=== PATIENT | male | born 1955 | race Caucasian/White ===

== ENCOUNTER → 2017-09-03 13:25 | Outpatient (CLI) | payer BC, SELFPAY ==
--- NOTE | 2017-09-03 13:31 | STE_ITS ---
Reason For Study: PRE-OP, RBBB, HTN, ABN EKG Stress Results Protocol: Dobutamine Stress Protocol Maximum Predicted HR: 161 bpm Target HR: 137 bpm% Maximum Predict ed HR: 84 % DurationHeart Rate Stage (mm:ss) (bpm) BPDose Comment BASELINE 88 137/98 DSE- 10 MCG 3:15 91 142/91 10.00 DSE- 20 MCG 3:05 12 0 175/96 20.00 DSE- 30 MCG 2:32 13 6 159/27751.00RARE TO OCCAS PVCS, RARE COUPLET. RECOVERY 98 142/82 RARE RUNS OF WIDE COMPLEX TACHYCARDIA Stress Duration: 8:52 mm:ss Maximum Stress HR: 136 bpm Baseline Echocardiogram Findings The estimated ejection fraction is 65 %. Stress Echo Wall motion Data Resting WMIntermediate WMStress WM Resting Wall Motion Wall Motion Stress No regional wall motion No regional wall motion abnormalities noted. abnormalities noted. EKG Data NSR with RBBB. The patient was titrated from 10 mcg to a maximun of 30 mcg of dobutamine during the stress. The maximum heart rate attained was 136 beats per minute. This was 84% of maximum predicted heart rate. During dobutamine infusion, there were no ST or T wave changes noted to suggest ischemia. No clinical angina was noted. Interpretation Summary The estimated ejection fraction is 65 %. The patient was titrated from 10 mcg to a maximun of 30 mcg of dobutamine during the stress. Normal, adequate, dobutamine echocardiogram. Negative for ischemia by EKG and echocardiographic criteria. No anginal symptoms noted. Rare PVC noted. Appropriate blood pressure response to dobutamine. Final LVEF is 75%. Test terminated due to the attainment of target heart rate. Patient tolerated procedure well. He is at low risk for noncardiac surgery. Ordering Physician: Francisco Wagner Referring Physician: Francisco Wagner Performed By: Lakeshia Bedolla, AMYCS, RVT
== END ==
PROVIDERS: Family Provider Nurse Practitioner; PCP Nurse Practitioner; Visit Provider Internal Medicine Cardiovascular Disease
DX: Z01.810 Encounter for preprocedural cardiovascular examination (principal); I45.10 Unspecified right bundle-branch block; R94.31 Abnormal electrocardiogram [ECG] [EKG]; I10 Essential (primary) hypertension; E66.9 Obesity, unspecified; E11.9 Type 2 diabetes mellitus without complications
CPT/HCPCS: 93017; 93350; J7030; A4216

== ENCOUNTER → 2019-05-29 22:36 | Outpatient (CLI) | payer BC, SELFPAY ==
[2019-05-29 22:44] LABS: Absolute Neutrophil Count 6.3 X10^3/uL (2.0-7.7); Basophil# 0.06 X10^3/uL; Basophil% 0.6 % (0-1); Eosinophil# 0.11 X10^3/uL; Eosinophils% 1.2 % (0-5); Hematocrit 45.9 % (40-54); Hemoglobin 15.7 g/dL (13.0-16.5); Lymphocyte % 22.6 % (19-41); Mean Corp Hgb Conc 34.2 g/dL (32-36); Mean Corpuscular Hgb 31.3 pg (27.0-32.0); Mean Corpuscular Volume 91.6 fL (80-94); Mean Platelet Vol. 10.6 fl (6.2-12.0); Monocyte# 0.64 X10^3/uL; Monocyte% 6.9 % (0-10); NRBC Flagged by Analyzer 0 % (0-5); Neutrophil # 6.33 X10^3/uL (2.7-7.7); Neutrophil % 68.3 % (47-70); Platelet Count 272 K/mm3 (150-450); RBC Distribution Width SD 40.2 fl (35.1-43.9); Red Blood Count 5.01 M/mm3 (4.6-6.2); White Blood Count 9.3 K/mm3 (4.4-11.0)
[2019-05-29 23:00] LABS: ALB/GLOB Ratio 1.2 RATIO (0.9-2.4); AST(SGOT) 20 U/L (15-37); Alanine Aminotransfer ALT/SGPT 45 U/L (16-61); Alkaline Phosphatase 60 U/L (45-117); Anion Gap 6 (5-15); BUN 24 mg/dL (7-18); BUN/Creat Ratio 24.5 RATIO (10-20); Calcium,Total 9.1 mg/dL (8.5-10.1); Chloride 102 mmol/L (98-107); Cholesterol 206 mg/dL (200); Creatinine, Serum 0.98 mg/dL (0.70-1.30); EST Glomerular Filtration Rate 82 mL/min (>60); Est Glom Filt Rate - Afr Amer 100 mL/min (>60); Globulin 3.4 g/dL (2.2-4.2); Glucose 166 mg/dL (74-106); High Density Lipoprotein 46 mg/dL; PSA,Total - Annual Screen 0.22 ng/mL (0.00-4.00); Potassium 4.3 mmol/L (3.5-5.1); Protein, Total 7.4 g/dL (6.4-8.2); Sodium Level 135 mmol/L (136-145); Triglycerides 242 mg/dL; Very Low Density Lipoprotein 48 mg/dL (5-40)
== END ==
PROVIDERS: Family Provider Nurse Practitioner; PCP Nurse Practitioner; Referring Provider Nurse Practitioner; Visit Provider Nurse Practitioner
DX: I73.9 Peripheral vascular disease, unspecified (principal); R39.15 Urgency of urination; E11.9 Type 2 diabetes mellitus without complications
CPT/HCPCS: 80053; 80061; 84153; 85025; G0103

== ENCOUNTER → 2020-06-11 | Outpatient (CLI) | payer BC, SELFPAY ==
[2020-06-11 18:54] VITALS: BMI 37.5
[2020-06-11 22:57] LABS: Absolute Lymphocyte Count 2.28 X10^3/uL (0.83-4.51); Absolute Neutrophil Count 5.6 X10^3/uL (2.0-7.7); Basophil# 0.07 X10^3/uL; Basophil% 0.8 % (0-1); Eosinophil# 0.16 X10^3/uL; Eosinophils% 1.8 % (0-5); Hematocrit 46.8 % (40-54); Hemoglobin 15.6 g/dL (13.0-16.5); Lymphocyte # 2.28 X10^3/ul (4.0); Lymphocyte % 25.7 % (19-41); Mean Corp Hgb Conc 33.3 g/dL (32-36); Mean Corpuscular Hgb 31.4 pg (27.0-32.0); Mean Corpuscular Volume 94.2 fL (80-94); Mean Platelet Vol. 11.2 fl (6.2-12.0); Monocyte# 0.72 X10^3/uL; Monocyte% 8.1 % (0-10); NRBC Flagged by Analyzer 0 % (0-5); Neutrophil # 5.62 X10^3/uL (2.7-7.7); Neutrophil % 63.4 % (47-70); Platelet Count 258 K/mm3 (150-450); RBC Distribution Width CV 12.1 % (11.6-14.6); RBC Distribution Width SD 42.2 fl (35.1-43.9); Red Blood Count 4.97 M/mm3 (4.6-6.2); White Blood Count 8.9 K/mm3 (4.4-11.0)
[2020-06-11 23:14] LABS: ALB/GLOB Ratio 1.1 RATIO (0.9-2.4); AST(SGOT) 20 U/L (15-37); Alanine Aminotransfer ALT/SGPT 54 U/L (16-61); Albumin, Serum 3.9 g/dL (3.2-5.0); Alkaline Phosphatase 66 U/L (45-117); Anion Gap 5 (5-15); BUN 22 mg/dL (7-18); BUN/Creat Ratio 25.6 RATIO (10-20); Calcium,Total 9.3 mg/dL (8.5-10.1); Chloride 100 mmol/L (98-107); Cholesterol 202 mg/dL (200); Creatinine, Serum 0.86 mg/dL (0.70-1.30); EST Glomerular Filtration Rate 96 mL/min (>60); Est Glom Filt Rate - Afr Amer 116 mL/min (>60); Globulin 3.4 g/dL (2.2-4.2); Glucose 216 mg/dL (74-106); High Density Lipoprotein 43 mg/dL; Potassium 4.8 mmol/L (3.5-5.1); Protein, Total 7.3 g/dL (6.4-8.2); Sodium Level 135 mmol/L (136-145); Triglycerides 275 mg/dL; Very Low Density Lipoprotein 55 mg/dL (5-40)
== END | disposition home or self-care (01) ==
PROVIDERS: PCP Nurse Practitioner; Referring Provider Nurse Practitioner; Visit Provider Nurse Practitioner
DX: E11.9 Type 2 diabetes mellitus without complications (principal); I10 Essential (primary) hypertension; R35.0 Frequency of micturition
CPT/HCPCS: 80053; 80061; 84153; 85025; G0103

== ENCOUNTER 2021-07-17 22:05 | Outpatient (CLI) | payer OTHER, SELFPAY ==
[2021-07-17 22:17] LABS: Absolute Lymphocyte Count 2.26 X10^3/uL (0.83-4.51); Absolute Neutrophil Count 5.7 X10^3/uL (2.0-7.7); Basophil# 0.05 X10^3/uL; Basophil% 0.6 % (0-1); Eosinophil# 0.12 X10^3/uL; Eosinophils% 1.4 % (0-5); Hematocrit 44.9 % (40-54); Hemoglobin 15.5 g/dL (13.0-16.5); Lymphocyte # 2.26 X10^3/ul (0.83-4.51); Lymphocyte % 25.7 % (19-41); Mean Corp Hgb Conc 34.5 g/dL (32-36); Mean Corpuscular Hgb 30.9 pg (27.0-32.0); Mean Corpuscular Volume 89.6 fL (80-94); Mean Platelet Vol. 10.7 fl (6.2-12.0); Monocyte# 0.58 X10^3/uL; Monocyte% 6.6 % (0-10); NRBC Flagged by Analyzer 0 % (0-5); Neutrophil # 5.74 X10^3/uL (2.7-7.7); Neutrophil % 65.4 % (47-70); Platelet Count 282 K/mm3 (150-450); RBC Distribution Width CV 12.1 % (11.6-14.6); RBC Distribution Width SD 39.2 fl (35.1-43.9); Red Blood Count 5.01 M/mm3 (4.6-6.2); White Blood Count 8.8 K/mm3 (4.4-11.0)
[2021-07-17 22:38] LABS: ALB/GLOB Ratio 1.1 RATIO (0.9-2.4); AST(SGOT) 20 U/L (15-37); Alanine Aminotransfer ALT/SGPT 51 U/L (16-61); Albumin, Serum 3.8 g/dL (3.2-5.0); Alkaline Phosphatase 63 U/L (45-117); Anion Gap 5 (5-15); BUN 20 mg/dL (7-18); BUN/Creat Ratio 24.8 RATIO (10-20); Calcium,Total 9.2 mg/dL (8.5-10.1); Chloride 100 mmol/L (98-107); Cholesterol 195 mg/dL (200); Creatinine, Serum 0.81 mg/dL (0.70-1.30); EST Glomerular Filtration Rate 103 mL/min (>60); Est Glom Filt Rate - Afr Amer 124 mL/min (>60); Globulin 3.6 g/dL (2.2-4.2); Glucose 284 mg/dL (74-106); High Density Lipoprotein 38 mg/dL; PSA,Total - Annual Screen 0.21 ng/mL (0.00-4.00); Potassium 5.1 mmol/L (3.5-5.1); Protein, Total 7.4 g/dL (6.4-8.2); Sodium Level 135 mmol/L (136-145); Triglycerides 329 mg/dL; Very Low Density Lipoprotein 66 mg/dL (5-40)
[2021-07-17 22:44] LABS: Hemoglobin A1c 10.1 % (3.8-5.6)
== END 2021-07-17 23:59 | disposition short-term general hospital (02) ==
PROVIDERS: PCP Nurse Practitioner; Visit Provider Nurse Practitioner
DX: E11.65 Type 2 diabetes mellitus with hyperglycemia (principal); I10 Essential (primary) hypertension; R35.0 Frequency of micturition
CPT/HCPCS: 80053; 80061; 83036; 84153; 85025; G0103

== ENCOUNTER 2021-07-31 07:19 | Day surgery (SDC) | payer OTHER, SELFPAY ==
[2021-07-31] VITALS (7 sets, daily range): BP systolic 120–157; BP diastolic 75–101; PULSE 64–73; RESP 3–18; TEMP 36.3–37.1; O2SAT 95–98; BMI 36.3
[2021-07-31] MEDS: Lactated Ringers 1,000 ML 15 ML IV (07:30)
[2021-07-31 08:01] LABS: Bedside Glucose 246 mg/dL (70-110)
--- NOTE | 2021-07-31 08:22 | HP.PCM_ITS ---
HPI - General HPI Narrative MICHELLE BAIN, is a 65 M who presents for screening colonoscopy secondary to duration since last screening colonoscopy being greater than 10 years. They are referred for surgical consultation from Lina Bruno NP. Patient has had prior colonoscopy. According the patient, the results of the scope were u nremarkable and the recommended follow-up was 10 years. Patient has no personal history of inflammatory bowel disease, diverticulitis, or colon cancer. They describe their bowel habits as normal, occurring approximately once daily. They deny any significant straining, bloody stools, or small caliber stools. Patient has a family history of colon cancer?in a half brother who was diagnosed with co batsheva cancer at the age of 65 and succumbed to this diagnosis at the age of 67. Patient confirms that he completed his prep successfully prior to today's procedure. [facility] Medical History (Updated 07/31/21 @ 08:[address] Aakash Sebastian MD) Abnormal electrocardiogram Arthritis Cardiology follow-up encounter Chronic hip pain Diabetes Dietary restriction Essential (primary) hypertension History of stress test Hypertension Non-smoker Obesity (BMI 30-39.9) Preop cardiovascular exam Right bundle branch block Type 2 diabetes mellitus without complications Home Medications aspirin 81 mg tablet,delayed release 81 mg PO QDAY tab 09/01/17 [History Last Taken 07/31/21] imiquimod 5 % topical cream packet 1 applic TOPICAL 5XW #24 ea 06/18/20 [Rx Last Taken Unknown] losartan 100 mg tablet 100 mg PO QDAY #30 tab 07/17/21 [Rx Last Taken 07/31/21] metformin 1,000 mg tablet 1,000 mg PO BID #60 tab 07/17/21 [Rx Last Taken Unknown] metoprolol succinate 100 mg tablet,extended release 24 hr 100 mg PO QDAY #30 tab 07/17/21 [Rx Last Taken 07/31/21] dapagliflozin 10 mg tablet 10 mg PO DAILY #30 tab 07/18/21 [Rx Last Taken Unknown] Allergy/AdvReac Type Severity Reaction Status Date / Time No Known Allergies Allergy Verified 07/31/21 07:42 Family History Mother Hypertension Diabetes Brother Heart disease Rheumatic Fever, valvular heart disease, MVR Rectal cancer 1/2 brother Surgical History (Updated 07/25/21 @ 09:18 by Dorys Davalos) bicep tendon repair H/O shoulder surgery History of herniorrhaphy History of surgery on arm History of total hip replacement Hx of colonoscopy Social History Smoking Status: Never smoker alcohol intake: never caffeine: No Past Medical/Surgical History Planned Operation Planned Operative Procedure/s: CSCOPE OA Previous Hospitalizations/Surgeries HX Hospitalizations: No Any Problems With Anesthesia: No You/Your Family Experience Fever (Hyperthermia) With Anes: No Cholinesterase deficiency: No Cardiovascular Hx Hypertension: Yes (CONTROLLED WITH MED) Respiratory Hx Sleep Apnea: No Hx Respiratory Tract Infection/Cold (presently): No Do You Snore Loudly (louder than talking or can be heard): No Do You Often Feel Tired/ Fatigued/ Sleepy Dring Daytime?: No Has Anyone Observed You Stop Breathing During Sleep?: No Result (for STOP score): Negative Smoking Status: Never smoker Neurological Does patient have nerve stimulator: No Reproduction : No Allergies No Known Allergies Allergy (Verified 07/31/21 07:42) Discharge Is Pt Admitted From a Halfway, or a Penitentiary: No After D/C, Where Do you Plan to Go: Return Home Vital Signs Vital Signs Vital Signs: 07/31/21 07:44 Temperature 97.3 F L Temperature Source Temporal Pulse Rate 70 Respiratory Rate 18 Respiratory Pattern Normal Blood Pressure 157/101 H Blood Pressure Mean 119 Blood Pressure Source Monitor Blood Pressure Position Semi-Fowlers Blood Pressure Location Left Arm Pulse Ox 98 Oxygen Delivery Method Room Air Weight Weight: 260 lb 2.327 oz Body Mass Index (BMI) 36.3 Physical Exam Const alert, oriented x3 and no apparent distress General Appearance: cooperative and comfortable GI soft to palpation, non-tender and non-distended Assessment & Plan Assessment/Plan (1) Screening for colon cancer: PLAN: This is a 65-year-old male who presents for update of screening colonoscopy. He states that his last screening colonoscopy was normal some 10+ years ago. He denies any personal change in bowel habits, but is eager to update his maintenance exam secondary to a diagnosis of colon cancer in a half brother. Patient confirms that his bowel prep proceeded without issue and that his output is now clear. I have described the details of the procedure and any post-? procedure expectations. Patient and his spouse expressed understanding. Therefore we will plan to proceed with screening colonoscopy under local MAC. Surgery Risks - Colonoscopy Risks Include but are not Limited To: Risks include but are not limited to: Bleeding, perforation requiring further surgery, inability to complete colonoscopy requiring barium enema.
--- NOTE | 2021-07-31 09:21 | OP.COLON_ITS ---
Patient Name: Anatoliy Earl Procedure Date: 07/31/2021 8:14 AM Date of : 1955 Age: 65 Procedure: Colonoscopy Indications: Screening for colorectal malignant neoplasm (last colonoscopy was more than 10 years ago) Providers: Aakash Sebastian MD Referring MD: Aakash Sebastian MD Medicines: See the Anesthesia note for documentation of the administered medications Patient Profile: Last Colonoscopy: more than 10 years ago. Complications: No immediate complications. Estimated blood loss: None. Procedure: Pre-Anesthesia Assessment: - The heart rate, respiratory rate, oxygen saturations, blood pressure, adequacy of pulmonary ventilation, and response to care were monitored throughout the procedure. After I obtained informed consent, the scope was passed under direct vision. Throughout the procedure, the patient's blood pressure, pulse, and oxygen saturations were monitored continuously. The adult colonoscope was introduced through the anus and advanced to the cecum, identified by appendiceal orifice and ileocecal valve. The colonoscopy was somewhat difficult due to poor endoscopic visualization. Successful completion of the procedure was aided by lavage. The patient tolerated the procedure well. The quality of the bowel preparation was adequate to identify polyps 6 mm and larger in size. Scope In: 8:39:30 AM Scope Withdrawal Time 0 hours 19 minutes 52 seconds Scope Out: 9:12:44 AM Total Procedure Duration Time 0 hours 33 minutes 14 seconds Findings: The exam was otherwise without abnormality on direct and retroflexion views. A few small-mouthed diverticula were found in the hepatic flexure. No biopsies or other specimens were collected for this exam. Impression: - The examination was otherwise normal on direct and retroflexion views. - Diverticulosis at the hepatic flexure. No specimens collected. Recommendation: - Discharge patient to home (via wheelchair). - Resume previous diet today. - Continue present medications. - Repeat colonoscopy in 10 years for screening purposes. Procedure Code(s): --- Professional --- 18850, Colonoscopy, flexible; diagnostic, including collection of specimen(s) by brushing or washing, when performed (separate procedure) Diagnosis Code(s): --- Professional --- Z12.11, Encounter for screening for malignant neoplasm of colon K57.30, Diverticulosis of large intestine without perforation or abscess without bleeding CPT copyright 2017 [employer]. All rights reserved. The codes documented in this report are preliminary and upon construction helper review may be revised to meet current compliance requirements. Aakash Sebastian MD 07/31/2021 9:21:39 AM This report has been signed electronically. Number of Addenda: 0 Note Initiated On: 07/31/2021 8:14 AM
--- NOTE | 2021-07-31 09:22 | OP.CCLET_ITS ---
07/31/2021 Lina Bruno NP [facility] [address] [place] [id number] Re : Colonoscopy procedure for Anatoliy Earl Dear Ms. Bruno This procedure was performed on July. My impressions and recommendations are as follows: Impressions : - The examination was otherwise normal on direct and retroflexion views. - Diverticulosis at the hepatic flexure. No specimens collected. Recommendations : - Discharge patient to home (via wheelchair). - Resume previous diet today. - Continue present medications. - Repeat colonoscopy in 10 years for screening purposes. My findings are described in the full procedure note, which is enclosed. If I can be of further assistance, please feel free to contact me at Doctor phone number(s): , Work: . Sincerely, Aakash Sebastian MD 07/31/2021 9:21:39 AM This report has been signed electronically.
== END 2021-07-31 23:59 | disposition home or self-care (01) ==
LOC: EN 07:20 → AC 07:20
PROVIDERS: PCP Nurse Practitioner; Referring Provider Surgery; Visit Provider Surgery
PROC: 0DJD8ZZ Inspection of Lower Intestinal Tract, Via Natural or Artificial Opening Endoscopic (ICD-10-PCS; CPT 45378; principal; 2021-07-31 08:25)
DX: Z12.11 Encounter for screening for malignant neoplasm of colon (principal); E11.51 Type 2 diabetes mellitus with diabetic peripheral angiopathy without gangrene; E11.65 Type 2 diabetes mellitus with hyperglycemia; K57.30 Diverticulosis of large intestine without perforation or abscess without bleeding; I45.10 Unspecified right bundle-branch block; I10 Essential (primary) hypertension; M19.90 Unspecified osteoarthritis, unspecified site; E66.9 Obesity, unspecified; Z68.36 Body mass index [BMI] 36.0-36.9, adult; Z79.82 Long term (current) use of aspirin; Z79.84 Long term (current) use of oral hypoglycemic drugs; Z79.899 Other long term (current) drug therapy; Z20.822 Contact with and (suspected) exposure to COVID-19; Z80.0 Family history of malignant neoplasm of digestive organs
CPT/HCPCS: 45378; 82962; 87426; C9803; J7120; J2405

== ENCOUNTER → 2022-04-06 | Outpatient (CLI) | payer OTHER, SELFPAY | END | disposition home or self-care (01) | LOC: PSN 06:57 | PROVIDERS: PCP Nurse Practitioner; Referring Provider Internal Medicine Cardiovascular Disease; Visit Provider Internal Medicine Cardiovascular Disease | DX: R94.31 Abnormal electrocardiogram [ECG] [EKG] (principal) | CPT/HCPCS: 93225; 93226 ==

== ENCOUNTER → 2022-04-09 | Outpatient (CLI) | payer OTHER, SELFPAY ==
--- NOTE | 2022-04-09 06:34 | ECHOD_ITS ---
Reason For Study: HTN Procedure This was a 2D Doppler, Color Flow transthoracic echocardiogram. Exam performed in department. Left Ventricle Mild concentric left ventricular hypertrophy. Normal LV size. The left ventricular ejection fraction is 50 %. Normal diastololic function. Right Ventricle Normal right ventricle. Atria The left atrium is moderately enlarged. Normal right atrium. Mitral Valve Mild mitral annular calcification. Trivial mitral valve insufficiency. Tricuspid Valve Trivial tricuspid valve insufficiency. Pulmonary artery systolic pressure is 28 mmHg. Aortic Valve Trisinus/trileaflet aortic valve. Mild diffuse aortic valve calcification. Mild aortic stenosis. Trivial aortic valve insufficiency. Pulmonic Valve The pulmonic valve is not well visualized. Mild (1+) eccentric pulmonic valve insufficiency. Great Vessels Calcified aortic root. Mild to moderately dilated aortic root. Pericardium/Pleural No pericardial effusion. MMode/2D Measurements & Calculations LVIDd: 4.9 cm IVSd: 1.2 cm Ao root diam: 4.3 cm LVIDs: 3.4 cm LVPWd: 1.2 cm RVDd: 3.5 cm FS: 29.3 % LAV(MOD-bp): 55.8 ml LVAd ap4: 44.3 cm2 SV(MOD-sp4): 92.8 ml LAV(MOD-bp) Indexed: 24.1 ml/m2 LVLd ap4: 9.1 cm LAV(MOD-sp2): 53.4 ml EDV(MOD-sp4): 173.2 ml LAV(MOD-sp4): 56.1 ml EDV(sp4-el): 183.7 ml LVAs ap4: 27.9 cm2 LVLs ap4: 8.3 cm ESV(MOD-sp4): 80.4 ml ESV(sp4-el): 79.9 ml EF(MOD-sp4): 53.6 % EF(sp4-el): 56.5 % SV(sp4-el): 103.8 ml LA A4 area: 20.6 cm2 LA dimension(2D): 3.7 cm RA A4 area: 21.1 cm2 Time Measurements MV dec time: 0.26 sec Doppler Measurements & Calculations MV E max franco: 56.1 cm/sec Lat Peak E' Franco: 4.2 cm/sec Med Peak E' Franco: 5.8 cm/sec MV A max franco: 109.4 cm/sec E/E' lat: 13.3 E/E' med: 9.7 MV E/A: 0.51 Ao V2 max: 149.1 cm/sec LV V1 max: 87.2 cm/sec PA V2 max: 91.5 cm/sec Ao max P.9 mmHg LV V1 max P.0 mmHg LV V1 mean P.9 mmHg LV V1 mean: 66.5 cm/sec LV V1 VTI: 18.9 cm TR max franco: 215.5 cm/sec TR max P.6 mmHg ECHO/Echo Complete Interpretation Summary Mild concentric left ventricular hypertrophy. The left ventricular ejection fraction is 50 %. The left atrium is moderately enlarged. Mild mitral annular calcification. Mild aortic stenosis. Mild (1+) eccentric pulmonic valve insufficiency. Mild to moderately dilated aortic root. Ordering Physician: Sukumar Ponce Referring Physician: SHANNON TREVINO Performed By: Elida Liang RDCS
--- NOTE | 2022-04-09 11:17 | STRESSREP ---
Stress Test Report Date: 04/09/2022 Procedure: Pharmacologic stress nuclear imaging study Indications: Abnormal EKG Consent: Per the patient Procedure: The patient underwent pharmacologic (Regadenoson 0.4mg ) evaluation with a peak heart rate of 93 beats per minute (59%predicted maximal heart rate) and a peak blood pressure of 128/84 mmHg. The baseline ECG demonstrated normal sinus rhythm with right bundle branch block. The peak pharmacologic ECG demonstrated no ischemic change. [There were no cardiac dysrhythmias pretest, during pharmacologic infusion, or recovery]. [There was no complaint of chest discomfort during pharmacologic infusion or recovery]. The patient was injected with 14.8 millicuries of technetium 99m Cardiolite and subsequently rest SPECT Cardiolite nuclear imaging was obtained in the horizontal long, vertical long, and short axis views. The patient underwent pharmacologic (Regadenoson) evaluation. The patient was injected with 45 millicuries of technetium 99m Cardiolite and subsequently stress SPECT Cardiolite nuclear imaging was obtained in the horizontal long, vertical long, and short axis views. A gated Cardiolite study at peak stress was obtained. The examination was stopped secondary to completion of protocol. Rest and stress SPECT Cardiolite nuclear imaging status post realignment, normalization, and attenuation correction demonstrate no fixed or reversible perfusion defects. The reported LVEF is 42%. Impression: 1. Pharmacologic (Regadenoson) evaluation 2. Peak pharmacologic ECG with nondiagnostic. 3. [There were no cardiac dysrhythmias pretest, during pharmacologic infusion, or recovery]. 5. No fixed or reversible defects. 6. The gated Cardiolite study reports an LVEF of 42%. This note was generated with Study Edgeation software. It may contain incorrect words, spelling, and punctuation that were not noted in checking the note before signing.
== END | disposition home or self-care (01) ==
PROVIDERS: PCP Nurse Practitioner; Referring Provider Internal Medicine Cardiovascular Disease; Visit Provider Internal Medicine Cardiovascular Disease
DX: I10 Essential (primary) hypertension (principal); R94.31 Abnormal electrocardiogram [ECG] [EKG]
CPT/HCPCS: 78452; 93017; 93306; A9500; A4216; J2785

== ENCOUNTER → 2022-04-29 | Outpatient (CLI) | payer OTHER, SELFPAY ==
[2022-04-29 10:40] LABS: Anion Gap 7 (5-15); BUN 17 mg/dL (7-18); BUN/Creat Ratio 22.7 RATIO (10-20); Calcium,Total 9.6 mg/dL (8.5-10.1); Chloride 102 mmol/L (98-107); Creatinine, Serum 0.75 mg/dL (0.70-1.30); EST Glomerular Filtration Rate 112 mL/min (>60); Est Glom Filt Rate - Afr Amer 135 mL/min (>60); Glucose 164 mg/dL (74-106); Potassium 4.3 mmol/L (3.5-5.1); Sodium Level 136 mmol/L (136-145)
== END | disposition home or self-care (01) ==
LOC: LAB 09:43
PROVIDERS: PCP Nurse Practitioner; Referring Provider Internal Medicine Cardiovascular Disease; Visit Provider Internal Medicine Cardiovascular Disease
DX: E87.1 Hypo-osmolality and hyponatremia (principal); E87.6 Hypokalemia
CPT/HCPCS: 36415; 80048

== ENCOUNTER → 2022-08-20 | Outpatient (CLI) | payer OTHER, SELFPAY ==
[2022-08-20 21:27] LABS: Absolute Lymphocyte Count 1.82 X10^3/uL (0.83-4.51); Absolute Neutrophil Count 4.3 X10^3/uL (2.0-7.7); Basophil# 0.07 X10^3/uL; Eosinophil# 0.14 X10^3/uL; Hemoglobin 15.5 g/dL (13.0-16.5); Lymphocyte # 1.82 X10^3/ul (0.83-4.51); Lymphocyte % 26.2 % (19-41); Mean Corp Hgb Conc 33.7 g/dL (32-36); Mean Corpuscular Hgb 30.7 pg (27.0-32.0); Mean Corpuscular Volume 91.1 fL (80-94); Mean Platelet Vol. 10.3 fl (6.2-12.0); Monocyte# 0.57 X10^3/uL; Monocyte% 8.2 % (0-10); NRBC Flagged by Analyzer 0 % (0-5); Platelet Count 262 K/mm3 (150-450); RBC Distribution Width CV 12.5 % (11.6-14.6); RBC Distribution Width SD 41.3 fl (35.1-43.9); Red Blood Count 5.05 M/mm3 (4.6-6.2); White Blood Count 6.9 K/mm3 (4.4-11.0)
[2022-08-20 21:47] LABS: AST(SGOT) 13 U/L (15-37); Alanine Aminotransfer ALT/SGPT 30 U/L (16-61); Albumin, Serum 3.8 g/dL (3.2-5.0); Alkaline Phosphatase 59 U/L (45-117); Anion Gap 7 (5-15); BUN 24 mg/dL (7-18); BUN/Creat Ratio 25.2 RATIO (10-20); Calcium,Total 9.5 mg/dL (8.5-10.1); Chloride 98 mmol/L (98-107); Cholesterol 186 mg/dL (200); Creatinine, Serum 0.95 mg/dL (0.70-1.30); EST Glomerular Filtration Rate 84 mL/min (>60); Est Glom Filt Rate - Afr Amer 102 mL/min (>60); Globulin 3.7 g/dL (2.2-4.2); Glucose 290 mg/dL (74-106); High Density Lipoprotein 33 mg/dL; PSA,Total - Annual Screen 0.39 ng/mL (0.00-4.00); Potassium 4.9 mmol/L (3.5-5.1); Protein, Total 7.5 g/dL (6.4-8.2); Sodium Level 134 mmol/L (136-145); Triglycerides 296 mg/dL; Very Low Density Lipoprotein 59 mg/dL (5-40)
[2022-08-20 22:20] LABS: Hemoglobin A1c 9.3 % (3.8-5.6)
== END | disposition home or self-care (01) ==
PROVIDERS: PCP Nurse Practitioner; Visit Provider Nurse Practitioner
DX: Z00.00 Encounter for general adult medical examination without abnormal findings (principal)
CPT/HCPCS: 80053; 80061; 83036; 84153; 85025; G0103